=== PATIENT | male | born 1990 | race Hispanic/Latino ===

== ENCOUNTER 2016-05-31 16:32 | Inpatient (IN) | payer OTHER ==
[~2016-05-31] VITALS: Ht 182.9 cm; Wt 100.5 kg
[2016-05-31 17:55] LABS: MEAN CORPUSCULAR HEMOGLOBIN 30.9 pg (27.0-33.0); MEAN CORPUSCULAR HGB CONC 34.7 g/dl (32.0-36.5); RED CELL DISTRIBUTION WIDTH 12.6 % (11.5-14.5); WHITE BLOOD COUNT 8.4 K/mm3 (4.0-10.0)
[2016-05-31 18:13] LABS: ALBUMIN 3.9 GM/DL (3.2-5.2); ALBUMIN/GLOBULIN RATIO 1.11 (1.00-1.93); ALKALINE PHOSPHATASE 79 U/L (45-117); ALT/SGPT 36 U/L (12-78); ANION GAP 7 MEQ/L (8-16); AST/SGOT 29 U/L (15-37); BILIRUBIN,DIRECT 0.2 MG/DL (0.0-0.2); BILIRUBIN,TOTAL 0.6 MG/DL (0.2-1.0); BLOOD UREA NITROGEN 10 MG/DL (7-18); CALCIUM LEVEL 8.7 MG/DL (8.5-10.1); CARBON DIOXIDE LEVEL 29 MEQ/L (21-32); CHLORIDE LEVEL 104 MEQ/L (98-107); CREATININE FOR GFR 0.88 MG/DL (0.70-1.30); GLOMERULAR FILTRATION RATE > 60.0 (>60); GLUCOSE, FASTING 90 MG/DL (70-105); SODIUM LEVEL 140 MEQ/L (136-145); TOTAL PROTEIN 7.4 GM/DL (6.4-8.2)
[2016-05-31 18:17] LABS: CONTROL LINE INT CTR LINE PRESENT; METHADONE URINE NEGATIVE (NEGATIVE); TRICYCLIC ANTIDEPRESS URINE NEGATIVE (NEGATIVE)
[2016-05-31 18:55] LABS: FREE T4 0.68 NG/DL (0.76-1.46)
[2016-06-01] MEDS ORDERED: LEVOTHYROXINE 0.15 MG TAB (150 MCG) PO ONE (06:45)
[2016-06-01] MEDS ORDERED: ZOMI5TAB2 PO (13:18)
[2016-06-01] MEDS ORDERED: VITA500055 PO (13:18)
[2016-06-01] MEDS ORDERED: LEVO200T4 PO (13:18)
[2016-06-01] MEDS ORDERED: FISH100049 PO (13:18)
[2016-06-01] MEDS ORDERED: VITA100T98 PO (13:18)
--- NOTE | 2016-06-01 14:33 | EDDOCDS ---
Physician Documentation [facility] Name: Jens Holder Age: 26 yrs Sex: Male : 1990 Arrival Date: 05/31/2016 Time: 16:32 Bed OBSERVATION Private MD: YUVAL Scanlon Disposition: 06/01 06:50 Due to EMR foreign exchange clerk to [employer], the medical record for this patient will completed sd1 in [employer]. Disposition: 06/01/16 12:12 Hospitalization ordered by Anton Mckeon for Inpatient Admission. Preliminary diagnosis is Major depressive disorder, recurrent, moderate. - Bed requested for Admit. - Status is Inpatient Admission. kcs - Condition is Stable. - Problem is new. - Symptoms are unchanged. HPI: 05/31 17:42 This 26 yrs old Male presents to ER via Police Car with complaints of Suicidal pc Ideation. 17:42 The history is obtained from the patient. The patient presents to the emergency pc department with suicidal ideation, depression. At their worst, the symptoms were moderate. In the emergency department, the symptoms are unchanged. He told his friends he was depressed and having SI thought but without a plan. His friend informed his Brannon and he was escorted here by [facility]. The patient has not experienced similar symptoms in the past. The patient has not recently seen a physician. Historical: - Allergies: No known drug Allergies; - Home Meds: 1. Synthroid 250 mcg Oral once daily (Last dose: 05/28/2016) - PMHx: Hypothyroidism; - PSHx: Arthroscopy, Knee- Left; - The history from nurses notes was reviewed: and I agree with what is documented. - Social history: Smoking status: Patient states was never smoker of tobacco. No barriers to communication noted, The patient speaks fluent Irish. - Family history: Not pertinent. - : The pt / caregiver states he / she is not on anticoagulants. Home medication list is obtained from the patient. - Hospitalizations: : No recent hospitalization is reported. - Exposure Risk Screening:: None identified. - Immunization history:: All immunizations up-to-date. - Social history:: the patient smokes cigarettes the patient drinks alcohol, the patient does not use illicit drugs. ROS: 17:42 All systems are negative except as listed. The psychiatric and neurological components pc are also addressed in the HPI. Exam: 17:42 General Appearance: alert, no acute distress. pc 17:42 ENT: ear, nose and throat normal, pharynx normal. 17:42 Eyes: pupils equal, round and reactive to light, extraocular motions intact. 17:42 Neck: 17:42 Neck: The exam reveals no acute abnormalities. ROM is normal and painless. No nuchal rigidity is noted.. 17:42 Respiratory: breathing is even and unlabored, breath sounds are normal. 17:42 Cardiovascular: regular pulse rate, regular heart rhythm, normal heart sounds, equal and full pulses bilaterally. 17:42 Abdomen: soft, non-tender, no organomegaly, normal bowel sounds. 17:42 Skin: skin color is normal, warm, dry. 17:42 Extremities: The extremities have a grossly normal appearance, are non-tender, without acute ROM abnormalities. 17:42 Neuro: alert, oriented to person, place and time, cranial nerves normal as tested, no motor deficits, no sensory deficits. 17:42 Psych: mood is depressed, suicidal, affect is flat. Vital Signs: 16:33 BP 143 / 90; Pulse 78; Resp 16; Temp 96.7(T); Pulse Ox 99% on R/A; Weight 99.79 kg / lr2 220 lbs (R); Height 6 ft. 0 in. (182.88 cm); Pain 0/10; 20:25 BP 157 / 88; Pulse 81; Resp 16; Temp 97.5(TE); Pulse Ox 97% on R/A; Pain 0/10; rw1 06/01 05:27 BP 138 / 85; Pulse 86; Resp 16; Temp 96.8(T); Pulse Ox 97% on R/A; Pain 0/10; rw1 14:16 BP 134 / 80; Pulse 71; Resp 18; Temp 97.6(O); Pulse Ox 98% on R/A; dpm 05/31 16:33 Body Mass Index 29.84 (99.79 kg, 182.88 cm) lr2 MDM: 05/31 17:22 Consult PFS/PSA/Technical Clerk: Patient's case requires discussion with on-call pc Psychiatrist ordered. 17:22 PSA/PFS to call Nursing Enamel Machine Operator, to enter patient data on [place] Safe [place] if patient pc involuntarily admitted or transferred for SI or HI ordered. 17:22 Confirm accurate psychiatric medication list and times of last dosage ordered. pc 17:22 Detain Pt Until Medically/PFS Cleared ordered. pc 17:24 Acetaminophen Level Ordered. EDMS 17:24 Basic Metabolic Profile Ordered. EDMS 17:24 Complete Blood Count Ordered. EDMS 17:24 Drug Eval Toxicology ED Only Ordered. EDMS 17:24 Ethyl Alcohol (ethanol) Ordered. EDMS 17:24 Liver Profile Ordered. EDMS 17:24 Salicylate Level Ordered. EDMS 17:24 Thyroid Stimulating Hormone Ordered. EDMS 17:25 REGULAR DIET PLASTIC FREEMAN+DIET ordered. EDMS 17:41 Consult PFS/PSA/Technical Clerk: Patient's case requires discussion with on-call mk4 Psychiatrist complete. 17:41 PSA/PFS to call Nursing Enamel Machine Operator, to enter patient data [place] Safe [place] if patient mk4 involuntarily admitted or transferred for SI or HI complete. 17:42 Differential diagnosis: depression, suicidal ideation. Plan: labs, PFS eval. pc 18:39 Acetaminophen Level Reviewed. pc 18:39 Basic Metabolic Profile Reviewed. pc 18:39 Salicylate Level Reviewed. pc 18:39 Thyroid Stimulating Hormone Reviewed. pc 18:39 Complete Blood Count Reviewed. pc 18:39 Drug Eval Toxicology ED Only Reviewed. pc 18:39 Ethyl Alcohol (ethanol) Reviewed. pc 18:39 Liver Profile Reviewed. pc 18:44 FREE T4 Ordered. EDMS 19:07 Acetaminophen Level Reviewed. pc 19:07 Basic Metabolic Profile Reviewed. pc 19:07 Salicylate Level Reviewed. pc 19:07 Thyroid Stimulating Hormone Reviewed. pc 19:07 FREE T4 Reviewed. pc 19:07 Ethyl Alcohol (ethanol) Reviewed. pc 19:07 Liver Profile Reviewed. pc 19:17 Financial registration complete. zo 22:00 [facility] [place] was scanned into [employer] and attached to record. zo 06/01 04:36 REGULAR DIET PLASTIC FREEMAN+DIET ordered. EDMS 06:28 Synthroid 150 mcg PO once ordered. cs11 11:46 REGULAR DIET PLASTIC FREEMAN+DIET ordered. EDMS 12:08 Admit to [facility]: ordered. EDMS 12:11 [facility] Legal paperwork was scanned into [employer] and attached to record. jl Administered Medications: 06:41 Drug: Synthroid 150 mcg Route: PO; rw1 Signatures: Dispatcher [employer] EDMS Nabor Byrne MD MD pc Delaney-Rowland, Sarah, MD MD sd1 Shannon Rogers, RN RN kcs Bre Zhou RN RN kpj Mookie Eldridge, JEAN-PIERRE PSA Hannah Burnett Craig, DO DO cs11 Shelli Jean RN RN mk4 Deacon Mann LPN rw1 The chart was reviewed and I authenticate all verbal orders and agree with the evaluation and treatment provided.Corrections: (The following items were deleted from the chart) 05/31 22:35 18:41 FREE T4+LAB ordered. EDMS EDMS Attachments: 22:00 [facility] Payment Agreement zo MTDD
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
[2016-06-01 14:59] VITALS: BP 130/78
[2016-06-01] MEDS ORDERED: MAALOX 30 ML SUSP *UDC PO PRN (18:00)
[2016-06-01] MEDS ORDERED: traZODone 50 MG TAB PO PRN (18:00)
[2016-06-01] MEDS ORDERED: MOM 30ML SUSPENSION UDC PO PRN (18:00)
[2016-06-01] MEDS ORDERED: IBUPROFEN 400 MG TAB PO PRN (18:00)
[2016-06-01 21:27] VITALS: BP 132/80
[2016-06-02] MEDS: LEVOTHYROXINE 0.125 MG TAB (125 MCG) PO SCH (06:04)
[2016-06-02 06:36] VITALS: BP 120/82
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
[2016-06-02 12:00] VITALS: BP 126/81
[2016-06-02 18:00] VITALS: BP 133/76
[2016-06-03] MEDS: LEVOTHYROXINE 0.125 MG TAB (125 MCG) PO SCH (06:15)
[2016-06-03 06:31] VITALS: BP 117/61
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
--- NOTE | 2016-06-03 15:35 | EDDOCDS ---
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 Disposition: 06/01/16 12:12 Hospitalization ordered by Anton Mckeon for Inpatient Admission. Preliminary diagnosis is Major depressive disorder, recurrent, moderate. - Bed requested for Admit. - Status is Inpatient Admission. kcs - Condition is Stable. - Problem is new. - Symptoms are unchanged. HPI: 05/31 17:42 This 26 yrs old Male presents to ER via Police Car with complaints of Suicidal pc Ideation. 17:42 The history is obtained from the patient. The patient presents to the emergency pc department with suicidal ideation, depression. At their worst, the symptoms were moderate. In the emergency department, the symptoms are unchanged. He told his friends he was depressed and having SI thought but without a plan. His friend informed his Brannon and he was escorted here by [facility]. The patient has not experienced similar symptoms in the past. The patient has not recently seen a physician. Historical: - Allergies: No known drug Allergies; - Home Meds: 1. Synthroid 250 mcg Oral once daily (Last dose: 05/28/2016) - PMHx: Hypothyroidism; - PSHx: Arthroscopy, Knee- Left; - The history from nurses notes was reviewed: and I agree with what is documented. - Social history: Smoking status: Patient states was never smoker of tobacco. No barriers to communication noted, The patient speaks fluent Arabic. - Family history: Not pertinent. - : The pt / caregiver states he / she is not on anticoagulants. Home medication list is obtained from the patient. - Hospitalizations: : No recent hospitalization is reported. - Exposure Risk Screening:: None identified. - Immunization history:: All immunizations up-to-date. - Social history:: the patient smokes cigarettes the patient drinks alcohol, the patient does not use illicit drugs. ROS: 17:42 All systems are negative except as listed. The psychiatric and neurological components pc are also addressed in the HPI. Exam: 17:42 General Appearance: alert, no acute distress. pc 17:42 ENT: ear, nose and throat normal, pharynx normal. 17:42 Eyes: pupils equal, round and reactive to light, extraocular motions intact. 17:42 Neck: 17:42 Neck: The exam reveals no acute abnormalities. ROM is normal and painless. No nuchal rigidity is noted.. 17:42 Respiratory: breathing is even and unlabored, breath sounds are normal. 17:42 Cardiovascular: regular pulse rate, regular heart rhythm, normal heart sounds, equal and full pulses bilaterally. 17:42 Abdomen: soft, non-tender, no organomegaly, normal bowel sounds. 17:42 Skin: skin color is normal, warm, dry. 17:42 Extremities: The extremities have a grossly normal appearance, are non-tender, without acute ROM abnormalities. 17:42 Neuro: alert, oriented to person, place and time, cranial nerves normal as tested, no motor deficits, no sensory deficits. 17:42 Psych: mood is depressed, suicidal, affect is flat. Vital Signs: 16:33 BP 143 / 90; Pulse 78; Resp 16; Temp 96.7(T); Pulse Ox 99% on R/A; Weight 99.79 kg / lr2 220 lbs (R); Height 6 ft. 0 in. (182.88 cm); Pain 0/10; 20:25 BP 157 / 88; Pulse 81; Resp 16; Temp 97.5(TE); Pulse Ox 97% on R/A; Pain 0/10; rw1 06/01 05:27 BP 138 / 85; Pulse 86; Resp 16; Temp 96.8(T); Pulse Ox 97% on R/A; Pain 0/10; rw1 14:16 BP 134 / 80; Pulse 71; Resp 18; Temp 97.6(O); Pulse Ox 98% on R/A; dpm 05/31 16:33 Body Mass Index 29.84 (99.79 kg, 182.88 cm) lr2 MDM: 05/31 17:22 Consult PFS/PSA/Physical Science Technician: Patient's case requires discussion with on-call pc Psychiatrist ordered. 17:22 PSA/PFS to call Nursing Jewelry Enameler, to enter patient data on [place] if patient pc involuntarily admitted or transferred for SI or HI ordered. 17:22 Confirm accurate psychiatric medication list and times of last dosage ordered. pc 17:22 Detain Pt Until Medically/PFS Cleared ordered. pc 17:24 Acetaminophen Level Ordered. EDMS 17:24 Basic Metabolic Profile Ordered. EDMS 17:24 Complete Blood Count Ordered. EDMS 17:24 Drug Eval Toxicology ED Only Ordered. EDMS 17:24 Ethyl Alcohol (ethanol) Ordered. EDMS 17:24 Liver Profile Ordered. EDMS 17:24 Salicylate Level Ordered. EDMS 17:24 Thyroid Stimulating Hormone Ordered. EDMS 17:25 REGULAR DIET PLASTIC FREEMAN+DIET ordered. EDMS 17:41 Consult PFS/PSA/Physical Science Technician: Patient's case requires discussion with on-call mk4 Psychiatrist complete. 17:41 PSA/PFS to call Nursing Jewelry Enameler, to enter [place] data [place] if patient mk4 involuntarily admitted or transferred for SI or HI complete. 17:42 Differential diagnosis: depression, suicidal ideation. Plan: labs, PFS eval. pc 18:39 Acetaminophen Level Reviewed. pc 18:39 Basic Metabolic Profile Reviewed. pc 18:39 Salicylate Level Reviewed. pc 18:39 Thyroid Stimulating Hormone Reviewed. pc 18:39 Complete Blood Count Reviewed. pc 18:39 Drug Eval Toxicology ED Only Reviewed. pc 18:39 Ethyl Alcohol (ethanol) Reviewed. pc 18:39 Liver Profile Reviewed. pc 18:44 FREE T4 Ordered. EDMS 19:07 Acetaminophen Level Reviewed. pc 19:07 Basic Metabolic Profile Reviewed. pc 19:07 Salicylate Level Reviewed. pc 19:07 Thyroid Stimulating Hormone Reviewed. pc 19:07 FREE T4 Reviewed. pc 19:07 Ethyl Alcohol (ethanol) Reviewed. pc 19:07 Liver Profile Reviewed. pc 19:17 Financial registration complete. zo 22:00 [facility] [place] Agreement was scanned into [employer] and attached to record. zo 06/01 04:36 REGULAR DIET PLASTIC FREEMAN+DIET ordered. EDMS 06:28 Synthroid 150 mcg PO once ordered. cs11 11:46 REGULAR DIET PLASTIC FREEMAN+DIET ordered. EDMS 12:08 Admit to IMHU: ordered. EDMS 12:11 [facility] Legal paperwork was scanned into [employer] and attached to record. jl Administered Medications: 06:41 Drug: Synthroid 150 mcg Route: PO; rw1 Signatures: Dispatcher [employer] EDMS Nabor Byrne MD MD pc Delaney-Rowland, Sarah, MD MD sd1 Shannon Rogers, RN RN kcs Bre Zhou RN RN kpj Mookie Eldridge, JEAN-PIERRE PSA Hannah Burnett Craig, DO DO cs11 Shelli Jean RN RN mk4 Deacon Mann LPN rw1 The chart was reviewed and I authenticate all verbal orders and agree with the evaluation and treatment provided.Corrections: (The following items were deleted from the chart) 05/31 22:35 18:41 FREE T4+LAB ordered. EDMS EDMS Attachments: 22:00 [facility] Payment Agreement zo Chart Complete MTDD
--- NOTE | 2016-06-03 15:35 | EDDOCDS ---
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 Disposition: 06/01/16 12:12 Hospitalization ordered by Anton Mckeon for Inpatient Admission. Preliminary diagnosis is Major depressive disorder, recurrent, moderate. - Bed requested for Admit. - Status is Inpatient Admission. kcs - Condition is Stable. - Problem is new. - Symptoms are unchanged. HPI: 05/31 17:42 This 26 yrs old Male presents to ER via Police Car with complaints of Suicidal pc Ideation. 17:42 The history is obtained from the patient. The patient presents to the emergency pc department with suicidal ideation, depression. At their worst, the symptoms were moderate. In the emergency department, the symptoms are unchanged. He told his friends he was depressed and having SI thought but without a plan. His friend informed his Brannon and he was escorted here by [facility]. The patient has not experienced similar symptoms in the past. The patient has not recently seen a physician. Historical: - Allergies: No known drug Allergies; - Home Meds: 1. Synthroid 250 mcg Oral once daily (Last dose: 05/28/2016) - PMHx: Hypothyroidism; - PSHx: Arthroscopy, Knee- Left; - The history from nurses notes was reviewed: and I agree with what is documented. - Social history: Smoking status: Patient states was never smoker of tobacco. No barriers to communication noted, The patient speaks fluent Albanian. - Family history: Not pertinent. - : The pt / caregiver states he / she is not on anticoagulants. Home medication list is obtained from the patient. - Hospitalizations: : No recent hospitalization is reported. - Exposure Risk Screening:: None identified. - Immunization history:: All immunizations up-to-date. - Social history:: the patient smokes cigarettes the patient drinks alcohol, the patient does not use illicit drugs. ROS: 17:42 All systems are negative except as listed. The psychiatric and neurological components pc are also addressed in the HPI. Exam: 17:42 General Appearance: alert, no acute distress. pc 17:42 ENT: ear, nose and throat normal, pharynx normal. 17:42 Eyes: pupils equal, round and reactive to light, extraocular motions intact. 17:42 Neck: 17:42 Neck: The exam reveals no acute abnormalities. ROM is normal and painless. No nuchal rigidity is noted.. 17:42 Respiratory: breathing is even and unlabored, breath sounds are normal. 17:42 Cardiovascular: regular pulse rate, regular heart rhythm, normal heart sounds, equal and full pulses bilaterally. 17:42 Abdomen: soft, non-tender, no organomegaly, normal bowel sounds. 17:42 Skin: skin color is normal, warm, dry. 17:42 Extremities: The extremities have a grossly normal appearance, are non-tender, without acute ROM abnormalities. 17:42 Neuro: alert, oriented to person, place and time, cranial nerves normal as tested, no motor deficits, no sensory deficits. 17:42 Psych: mood is depressed, suicidal, affect is flat. Vital Signs: 16:33 BP 143 / 90; Pulse 78; Resp 16; Temp 96.7(T); Pulse Ox 99% on R/A; Weight 99.79 kg / lr2 220 lbs (R); Height 6 ft. 0 in. (182.88 cm); Pain 0/10; 20:25 BP 157 / 88; Pulse 81; Resp 16; Temp 97.5(TE); Pulse Ox 97% on R/A; Pain 0/10; rw1 06/01 05:27 BP 138 / 85; Pulse 86; Resp 16; Temp 96.8(T); Pulse Ox 97% on R/A; Pain 0/10; rw1 14:16 BP 134 / 80; Pulse 71; Resp 18; Temp 97.6(O); Pulse Ox 98% on R/A; dpm 05/31 16:33 Body Mass Index 29.84 (99.79 kg, 182.88 cm) lr2 MDM: 05/31 17:22 Consult PFS/PSA/Installer Interior Assemblies: Patient's case requires discussion with on-call pc Psychiatrist ordered. 17:22 PSA/PFS to call Nursing System Software Programmer, to enter [place] data [place] if patient pc involuntarily admitted or transferred for SI or HI ordered. 17:22 Confirm accurate psychiatric medication list and times of last dosage ordered. pc 17:22 Detain Pt Until Medically/PFS Cleared ordered. pc 17:24 Acetaminophen Level Ordered. EDMS 17:24 Basic Metabolic Profile Ordered. EDMS 17:24 Complete Blood Count Ordered. EDMS 17:24 Drug Eval Toxicology ED Only Ordered. EDMS 17:24 Ethyl Alcohol (ethanol) Ordered. EDMS 17:24 Liver Profile Ordered. EDMS 17:24 Salicylate Level Ordered. EDMS 17:24 Thyroid Stimulating Hormone Ordered. EDMS 17:25 REGULAR DIET PLASTIC FREEMAN+DIET ordered. EDMS 17:41 Consult PFS/PSA/Installer Interior Assemblies: Patient's case requires discussion with on-call mk4 Psychiatrist complete. 17:41 PSA/PFS to call Nursing System Software Programmer, to enter [place] data [place] if patient mk4 involuntarily admitted or transferred for SI or HI complete. 17:42 Differential diagnosis: depression, suicidal ideation. Plan: labs, PFS eval. pc 18:39 Acetaminophen Level Reviewed. pc 18:39 Basic Metabolic Profile Reviewed. pc 18:39 Salicylate Level Reviewed. pc 18:39 Thyroid Stimulating Hormone Reviewed. pc 18:39 Complete Blood Count Reviewed. pc 18:39 Drug Eval Toxicology ED Only Reviewed. pc 18:39 Ethyl Alcohol (ethanol) Reviewed. pc 18:39 Liver Profile Reviewed. pc 18:44 FREE T4 Ordered. EDMS 19:07 Acetaminophen Level Reviewed. pc 19:07 Basic Metabolic Profile Reviewed. pc 19:07 Salicylate Level Reviewed. pc 19:07 Thyroid Stimulating Hormone Reviewed. pc 19:07 FREE T4 Reviewed. pc 19:07 Ethyl Alcohol (ethanol) Reviewed. pc 19:07 Liver Profile Reviewed. pc 19:17 Financial registration complete. zo 22:00 [facility] [place] Payment Agreement was scanned into [employer] and attached to record. zo 06/01 04:36 REGULAR DIET PLASTIC FREEMAN+DIET ordered. EDMS 06:28 Synthroid 150 mcg PO once ordered. cs11 11:46 REGULAR DIET PLASTIC FREEMAN+DIET ordered. EDMS 12:08 Admit to IMHU: ordered. EDMS 12:11 [facility] Legal paperwork was scanned into [employer] and attached to record. jl Administered Medications: 06:41 Drug: Synthroid 150 mcg Route: PO; rw1 Signatures: Dispatcher [employer] EDMS Nabor Byrne MD MD pc Delaney-Rowland, Sarah, MD MD sd1 Shannon Rogers, RN RN kcs Bre Zhou RN RN kpj Mookie Eldridge, JEAN-PIERRE PSA Hannah Burnett Craig, DO DO cs11 Shelli Jean RN RN mk4 Deacon Mann LPN rw1 The chart was reviewed and I authenticate all verbal orders and agree with the evaluation and treatment provided.Corrections: (The following items were deleted from the chart) 05/31 22:35 18:41 FREE T4+LAB ordered. EDMS EDMS Attachments: 22:00 [facility] Payment Agreement zo Chart Complete MTDD
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
== END 2016-06-03 12:00 | disposition home or self-care (01) | DRG 885 ==
LOC: M ED 16:32 → M ED INP 06-01 12:01 → M PSY 06-01 17:51
PROVIDERS: ADMIT Psychiatry & Neurology Psychiatry; ATTEND Internal Medicine Addiction Medicine
DX: F33.9 Major depressive disorder, recurrent, unspecified (principal); F43.10 Post-traumatic stress disorder, unspecified; E03.9 Hypothyroidism, unspecified; E55.9 Vitamin D deficiency, unspecified; G43.909 Migraine, unspecified, not intractable, without status migrainosus; Z87.820 Personal history of traumatic brain injury; Z79.899 Other long term (current) drug therapy